=== PATIENT | male | born 1990 | race Caucasian/White ===

== ENCOUNTER → 2023-06-15 | Outpatient (CLI) | payer OTHER ==
--- NOTE | 2023-06-15 07:59 | US ---
EXAMINATION TYPE: US liver DATE OF EXAM: 06/15/2023 COMPARISON: NONE CLINICAL INDICATION: Male, 33 years old with history of R94.5 ABNORMAL LIVER FUNCTIONS; LFTS TECHNIQUE: Multiple sonographic images of the right upper quadrant are obtained. 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
== END | disposition home or self-care (01) ==
LOC: RADUSWWP 06:59
PROVIDERS: ATTEND Family Medicine
DX: R94.5 Abnormal results of liver function studies (principal); R79.89 Other specified abnormal findings of blood chemistry
CPT/HCPCS: 76705